=== PATIENT | female | born 1950 | race Two or more races ===

== ENCOUNTER 2024-09-15 10:38 | Inpatient (IN) | payer BC, OTHER ==
[~2024-09-15] VITALS: Ht 160 cm; Wt 106.0 kg
[2024-09-15 05:00] VITALS: BP 158/107; PULSE 65; RESP 17; TEMP 97.8; O2SAT 95
--- NOTE | 2024-09-15 11:30 | ED.PDOC ---
General HPI Comments HPI: 74 year old female presents to the emergency department with a chief complaint of LT flank pain onset today (09/15/24) about 1 hour prior to ED arrival. Patient states she began experiencing LT flank pain radiating to left mid abdomen for the past hour, as well as nausea/vomiting. Patient had kidney stones in the past, states pain is similar. Denies fevers, chills, diarrhea, constipation, dizziness, hematemesis, hematuria. No other symptoms or modifying factors present at this time. Initial Vitals BP: 176/85 HR: 64 RR: 20 O2 Sat: 95% Temp: 99.2F Past Medical history: kidney stones, HTN, trigeminal neuralgia Past Surgical history: Denies Medications: Social History: Denies smoking, ETOH, and drug use. Allergies: Penicillin, Azithromycin HPI: Poor Historian. REVIEW OF SYSTEMS: CONSTITUTIONAL: Denies acute: fever, diaphoresis, chills, HEAD: Denies acute: headache, photophobia Eyes: Denies acute: Double vision, vision loss, eye pain, eye discharge. EARS: Denies acute: tinnitus, hearing loss, ear discharge, ear pain, THROAT: Denies acute: sore throat, swelling, difficulty swallowing , pain with swallowing, change in voice. NECK: Denies acute: neck pain, neck swelling, stiff neck. HEART: Denies acute : chest pain, palpitations, LUNGS: Denies acute: SOB, wheezing, cough, hemoptysis ABDOMEN: Denies acute: diarrhea, melena , hematemesis, hematochezia SKIN: Denies acute: rash, redness, lesions, itchiness. EXTREMITIES: Denies acute: calf pain, numbness, tingling, weakness, denies pain in extremity. Denies acute: Low back pain. Neuro: Denies acute: focal neurological deficit, motor or sensory focal neurological deficit, tremors, seizure like activity, confusion, dizziness, change in mental status, loss of bowel or bladder function, cauda equina like symptoms. : Denies acute: dysuria, hematuria, increase in urinary frequency. PSYCH: Denies acute: hallucination, suicidal ideation, homicidal ideation. FEMALE: Denies acute: abnormal vaginal bleeding, foul odor, unusual discharge. PHYSICAL EXAM: General: ----moderate to severe----acute distress, awake and alert. Head: normocephalic, atraumatic. Neck: supple, trachea is midline, no swelling. Throat: Normal phonation. Eyes:, no erythema, no purulent discharge, no proptosis, no icterus. Heart: regular rate, regular rhythm, no significant murmur appreciated. Lungs: no apparent respiratory distress, Able to speak in full sentences. No wheezing, no rhonchi, no crackles. No stridors Clear to auscultation bilaterally. Abdomen: Left mid abdomen tender to palpation, non distended, soft, no guarding, no rebound, + bowel sounds. Neuro: Awake, Alert, oriented to name, self, situation, follows commands GCS=15. Speech is normal. Skin: no petechia, no purpura, no cyanosis, non-pale, not jaundice. Lower extremities: --no - Pitting edema no deformity, no focal swelling, no calf TTP. Makes eye contact. moves all four extremities. Face: no apparent facial droop. Left CVA tenderness to percussion ED COURSE: DISCLAIMER: This medical document was created using an electronic medical record system with voice recognition software and computerized dictation system. Although this document has been carefully reviewed, there might still be some phonetic and typographical errors. Occasional wrong-word or "sound-alike" substitutions may have occurred due to the inherent limitations of voice recognition software. These areas are purely typographical due to imperfections of the software programs and do not reflect any compromise in the patient's medical care. Please read the chart carefully and recognize, using context, where these substitutions have occurred. Chief Complaint: Flank Pain Time Seen by MD: 10:55 Reviewed notes: Medications, Allergies Allergies: Coded Allergies: Erythromycin (Verified Allergy, Unknown, 09/15/24) Penicillins (Verified Allergy, Unknown, 09/15/24) Information Source: Patient, Spouse Mode of Arrival: Ambulatory Severity: Moderate Timing: Hours Duration: Since onset Prehospital treatment: None Onset: Spontaneous Symptoms: None History of: Kidney stone Location: Abdomen, (L)Flank associated signs and symptoms: Nausea, Vomiting, Flank Pain, Back Pain Past Medical History PAST MEDICAL HISTORY: HTN, Kidney Stones Surgical History: Denies all surgeries 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 Was a procedure done?: No X-Ray, Labs, Meds, VS Vital Signs Date Time Temp Pulse Resp B/P (MAP) Pulse Ox O2 Delivery O2 Flow Rate FiO2 09/15/24 15:42 135/54 09/15/24 14:00 61 16 132/47 (75) 95 09/15/24 12:11 90 Nasal Cannula* 4 36 09/15/24 12:02 50 16 90 Nasal Cannula* 4 36 09/15/24 12:00 52 09/15/24 12:00 98.1 47 16 139/64 (89) 95 98.1 09/15/24 11:52 134/67 09/15/24 10:42 99.2 64 20 176/85 (115) 95 99.2 Lab Test 09/15/24 12:17 09/15/24 11:19 Range/Units POC Glucose 197 H 70-106 mg/dl White Blood Count 7.9 4.4-10.8 10^3/uL Red Blood Count 4.68 4.0-5.20 10^6/uL Hemoglobin 15.5 12.2-16.2 g/dL Hematocrit 45.1 36.0-46.0 % Mean Corpuscular Volume 96.3 80.0-100.0 fL Mean Corpuscular Hemoglobin 33.1 H 28.0-32.0 pg Mean Corpuscular Hemoglobin Concent 34.3 32.0-36.0 g/dL Red Cell Distribution Width 12.4 11.8-14.3 % Platelet Count 144 140-450 10^3/uL Mean Platelet Volume 9.6 6.9-10.8 fL Neutrophils (%) (Auto) 71.1 37.0-80.0 % Lymphocytes (%) (Auto) 21.0 10.0-50.0 % Monocytes (%) (Auto) 4.7 0.0-12.0 % Eosinophils (%) (Auto) 2.5 0.0-7.0 % Basophils (%) (Auto) 0.7 0.0-2.0 % Neutrophils # (Auto) 5.6 1.6-8.6 10 ^3/uL Lymphocytes # (Auto) 1.6 0.4-5.4 10 ^3/uL Monocytes # (Auto) 0.4 0-1.3 10 ^3/uL Eosinophils # (Auto) 0.2 0-0.8 10 ^3/uL Basophils # (Auto) 0.1 0-0.2 10 ^3/uL Nucleated Red Blood Cells 0.1 % Sodium Level 145 136-145 mmol/L Potassium Level 3.4 L 3.5-5.1 mmol/L Chloride Level 110 H 98-107 mmol/L Carbon Dioxide Level 26 20-31 mmol/L Anion Gap 9 5-15 Blood Urea Nitrogen 23 9-23 mg/dL Creatinine 0.77 0.550-1.02 mg/dL Glomerular Filtration Rate Calc 81 >90 mL/min BUN/Creatinine Ratio 29.9 H 10.0-20.0 Serum Glucose 175 H 74-106 mg/dL Lactic Acid Level 1.8 0.4-2.0 mmol/L Calcium Level 9.1 8.7-10.4 mg/dL Total Bilirubin 0.4 0.2-1.0 mg/dL Aspartate Amino Transferase (AST) 22 13-40 U/L Alanine Aminotransferase (ALT) 23 7-40 U/L Alkaline Phosphatase 83 46-116 U/L Troponin I High Sensitivity < 3 L </=34 ng/L Total Protein 6.1 5.7-8.2 g/dL Albumin 4.2 3.2-4.8 g/dL Lipase 36 12-53 U/L Current Medications Medications (Trade) Dose Ordered Sig/Jose Luis Route Start Time Stop Time Status Last Admin Sodium Chloride 1,000 ml @ 1,000 mls/hr Q1H ONCE IV 09/15/24 11:15 09/15/24 12:14 DC 09/15/24 11:47 Ondansetron HCl (Zofran) 8 mg ONCE ONCE IV 09/15/24 11:15 09/15/24 11:16 DC 09/15/24 11:46 Tamsulosin HCl (Flomax) 0.4 mg ONCE ONCE PO 09/15/24 11:15 09/15/24 11:16 DC 09/15/24 12:22 Fentanyl Citrate 100 mcg ONCE ONCE IV 09/15/24 11:15 09/15/24 11:16 DC 09/15/24 11:52 Sodium Chloride 1,000 ml @ 1,000 mls/hr Q1H ONCE IV 09/15/24 13:00 09/15/24 13:59 DC 09/15/24 14:04 Ceftriaxone Sodium 50 ml @ 100 mls/hr ONCE ONCE IV 09/15/24 13:45 09/15/24 14:14 DC 09/15/24 14:04 Fentanyl Citrate 100 mcg ONCE ONCE IV 09/15/24 14:45 09/15/24 14:46 DC 09/15/24 15:42 Sodium Chloride 1,000 ml @ 1,000 mls/hr Q1H ONCE IV 09/15/24 14:45 09/15/24 15:44 DC 09/15/24 16:02 [place] [address] Ph: [phone] DIAGNOSTIC IMAGING Diagnostic Imaging Report : [id number] Signed PATIENT: [address] ACCT: [id number] UNIT: [id number] : 1950 LOC: ER ROOM / BED: / AGE / SEX: 74 / F ADM STATUS: REG ER SERVICE 1101 ORDERING PHYSICIAN: TYRONE DELACRUZ DO PROCEDURE(s): ABPL - CT AB PEL WO CON-NO ORAL OR IV REASON: dizzy ORDER NUMBER(s): [id number], ACCESSION NUMBER(s): [id number] EXAM: CT CT AB PEL WO CON-NO ORAL OR IV HISTORY: dizzy COMPARISON: None TECHNIQUE: Helical CT images of the abdomen and pelvis were performed without IV contrast. Sagittal and coronal reformatted images were obtained. This CT exam was performed using one or more of the following dose reduction techniques: Automated exposure control, adjustment of the mA and/or kv according to patient size, or the use of iterative reconstruction techniques. Radiation Dose: Abdomen/Pelvis: CTDIvol 22.6 mGy, DLP 1197.44 mGy*cm. FINDINGS: CT abdomen: There is mild interstitial prominence in the lung bases. The heart is enlarged. Subcentimeter gallstone is identifiedin the dependent portion of the gallbladder. There is moderate left hydronephrosis and hydroureter secondary to distal ureteral 3 mm calculus (image 80, series 2). There is a nonobstructing 3 mm left renal inferior pole calculus. The liver measures 21 cm longitudinal. The noncontrast spleen, pancreas, right kidney, and bilateral adrenal glands are unremarkable. No abdominal aortic aneurysm. There is a small fatty umbilical hernia. CT pelvis: No abnormal bowel dilatation, free air, or free fluid. There are descending and sigmoid colon diverticula without evidence of acute diverticulitis. The appendix is not dilated. There is a small fatty left inguinal indirect hernia. There is moderate to severe lower lumbar degenerative disc disease and facet arthropathy. IMPRESSION: 1. Moderate left hydronephrosis and hydroureter secondary to distal ureteral 3 mm calculus. There is also nonobstructing left nephrolithiasis. 2. Cardiomegaly. 3. Mild interstitial prominence in the lung bases may be due to scarring, reactive airways disease, or mild CHF. 4. Cholelithiasis. 5. Descending and sigmoid colon diverticulosis without evidence of acute diverticulitis. 6. No evidence of bowel obstruction, acute appendicitis, or other acute process in the abdomen or pelvis. ATED BY: POOJA QUINTERO MD DICTATED DATE/TIME: 09/15/24 1135 SIGNED BY: POOJA QUINTERO MD SIGNED DATE/TIME: 09/15/24 1135 CC: Time of 1ST Reevaluation: 11:25 Reevaluation 1ST: Unchanged Time of 2ND Reevaluation: 16:04 (The case was discussed with the admitting team (HPI, physical exam, labs and diagnostic tests that were available at the time of disposition, ED course, treatment plan) on the phone. They agreed to admit the patient to their service and assume care of this patient from this point forward. --- Codey. ) Patient Education/Counseling: Diagnosis, Treatment Family Education/Counseling: Diagnosis, Treatment Departure 1 Departure Time of Disposition: 14:42 Impression: Primary Impression: Kidney stone Additional Impression: Hydronephrosis with renal and ureteral calculous obstruction Disposition: ADMITTED INPATIENT Admit to: [facility] Condition: Guarded Additional Instructions: [facility] [id number] [facility] [address] Ph: [phone] DIAGNOSTIC IMAGING Diagnostic Imaging Report : [id number] Signed PATIENT: [address] ACCT: [id number] UNIT: [id number] : 1950 LOC: ER ROOM / BED: / AGE / SEX: 74 / F ADM STATUS: REG ER SERVICE 1101 ORDERING PHYSICIAN: TYRONE DELACRUZ DO PROCEDURE(s): ABPL - CT AB PEL WO CON-NO ORAL OR IV REASON: dizzy ORDER NUMBER(s): [id number], ACCESSION NUMBER(s): [id number] EXAM: CT CT AB PEL WO CON-NO ORAL OR IV HISTORY: dizzy COMPARISON: None TECHNIQUE: Helical CT images of the abdomen and pelvis were performed without IV contrast. Sagittal and coronal reformatted images were obtained. This CT exam was performed using one or more of the following dose reduction techniques: Automated exposure control, adjustment of the mA and/or kv according to patient size, or the use of iterative reconstruction techniques. Radiation Dose: Abdomen/Pelvis: CTDIvol 22.6 mGy, DLP 1197.44 mGy*cm. FINDINGS: CT abdomen: There is mild interstitial prominence in the lung bases. The heart is enlarged. Subcentimeter gallstone is identifiedin the dependent portion of the gallbladder. There is moderate left hydronephrosis and hydroureter secondary to distal ureteral 3 mm calculus (image 80, series 2). There is a nonobstructing 3 mm left renal inferior pole calculus. The liver measures 21 cm longitudinal. The noncontrast spleen, pancreas, right kidney, and bilateral adrenal glands are unremarkable. No abdominal aortic aneurysm. There is a small fatty umbilical hernia. CT pelvis: No abnormal bowel dilatation, free air, or free fluid. There are descending and sigmoid colon diverticula without evidence of acute diverticulitis. The appendix is not dilated. There is a small fatty left inguinal indirect hernia. There is moderate to severe lower lumbar degenerative disc disease and facet arthropathy. IMPRESSION: 1. Moderate left hydronephrosis and hydroureter secondary to distal ureteral 3 mm calculus. There is also nonobstructing left nephrolithiasis. 2. Cardiomegaly. 3. Mild interstitial prominence in the lung bases may be due to scarring, reactive airways disease, or mild CHF. 4. Cholelithiasis. 5. Descending and sigmoid colon diverticulosis without evidence of acute diverticulitis. 6. No evidence of bowel obstruction, acute appendicitis, or other acute process in the abdomen or pelvis. ATED BY: POOJA QUINTERO MD DICTATED DATE/TIME: 09/15/24 1135 SIGNED BY: POOJA QUINTERO MD SIGNED DATE/TIME: 09/15/24 1135 CC: Discharged With: Self I personally scribed for TYRONE DELACRUZ DO ([email or web address]) on 09/15/24 at 11:30. Electronically submitted by Hiral Bhatt ([email or web address]). I personally scribed for TYRONE DELACRUZ DO ([email or web address]) on 09/15/24 at 12:33. Electronically submitted by Hiral Bhatt ([email or web address]). I personally scribed for TYRONE DELACRUZ DO ([email or web address]) on 09/15/24 at 14:30. Electronically submitted by Hiral Bhatt ([email or web address]). TYRONE DELACRUZ DO Sep 15, 2024 11:30
[2024-09-15 11:33] LABS: Hematocrit 45.1 % (36.0-46.0); Hemoglobin 15.5 g/dL (12.2-16.2); Mean Corpuscular Hemoglobin 33.1 pg (28.0-32.0); Mean Corpuscular Volume 96.3 fL (80.0-100.0); Nucleated Red Blood Cells % 0.1 %
--- NOTE | 2024-09-15 11:37 | DVH ---
EXAM: CT CT AB PEL WO CON-NO ORAL OR IV HISTORY: dizzy COMPARISON: None TECHNIQUE: Helical CT images of the abdomen and pelvis were performed without IV contrast. Sagittal a nd coronal reformatted images were obtained. This CT exam was performed using one or more of the foll owing dose reduction techniques: Automated exposure control, adjustment of the mA and/or kv according to patient size, or the use of iterative reconstruction techniques. Radiation Dose: Abdomen/Pelvis: CTDIvol 22.6 mGy, DLP 1197.44 mGy*cm. FINDINGS: CT abdomen: There is mild interstitial prominence in the lung bases. The heart is enlarged. Subcenti meter gallstone is identifiedin the dependent portion of the gallbladder. There is moderate left hydr onephrosis and hydroureter secondary to distal ureteral 3 mm calculus (image 80, series 2). There is a nonobstructing 3 mm left renal inferior pole calculus. The liver measures 21 cm longitudinal. The n oncontrast spleen, pancreas, right kidney, and bilateral adrenal glands are unremarkable. No abdomina l aortic aneurysm. There is a small fatty umbilical hernia. CT pelvis: No abnormal bowel dilatation, free air, or free fluid. There are descending and sigmoid co alli diverticula without evidence of acute diverticulitis. The appendix is not dilated. There is a sma ll fatty left inguinal indirect hernia. There is moderate to severe lower lumbar degenerative disc di sease and facet arthropathy. IMPRESSION: 1. Moderate left hydronephrosis and hydroureter secondary to distal ureteral 3 mm calculus. There is also nonobstructing left nephrolithiasis. 2. Cardiomegaly. 3. Mild interstitial prominence in the lung bases may be due to scarring, reactive airways disease, o r mild CHF. 4. Cholelithiasis. 5. Descending and sigmoid colon diverticulosis without evidence of acute diverticulitis. 6. No evidence of bowel obstruction, acute appendicitis, or other acute process in the abdomen or pel vis.
[2024-09-15] MEDS: ONDANSETRON HCL 4 MG/2 ML VIAL IV ONE (11:46)
[2024-09-15] MEDS: SODIUM CHLORIDE 0.9% 1,000 ML IV ONE ×3 (11:47→16:02)
[2024-09-15 11:50] LABS: Alanine Aminotransferase 23 U/L (7-40); Albumin 4.2 g/dL (3.2-4.8); Alkaline Phosphatase 83 U/L (46-116); Anion Gap 9 (5-15); BUN/Creatinine Ratio 29.9 (10.0-20.0); Calcium 9.1 mg/dL (8.7-10.4); Carbon Dioxide 26 mmol/L (20-31); Lipase 36 U/L (12-53); Sodium 145 mmol/L (136-145); Total Protein 6.1 g/dL (5.7-8.2)
[2024-09-15 11:51] LABS: Bilirubin, Total 0.4 mg/dL (0.2-1.0)
[2024-09-15 11:52] LABS: Blood Urea Nitrogen 23 mg/dL (9-23); Chloride 110 mmol/L (98-107); Glucose 175 mg/dL (74-106); Potassium 3.4 mmol/L (3.5-5.1)
[2024-09-15] MEDS: fentaNYL CITRATE 100 MCG/2 ML VL IV ONE ×2 (11:52→15:42)
[2024-09-15 12:02] VITALS: PULSE 50; RESP 16; O2SAT 90
[2024-09-15] MEDS: TAMSULOSIN HYDROCHLORIDE 0.4 MG CAP PO ONE (12:22)
[2024-09-15] MEDS: cefTRIAXone 1GM/50ML D5W 50 ML IV ONE (14:04)
[2024-09-15] MEDS ORDERED: NITROGLYCERIN 0.4 MG SL TAB SL PRN (16:15)
[2024-09-15] MEDS ORDERED: HYDROcodone-ACET 5/325MG TAB PO PRN (16:15)
[2024-09-15] MEDS ORDERED: TEMAZEPAM 15 MG CAP PO PRN (16:15)
[2024-09-15] MEDS ORDERED: MORPHINE SULFATE INJ 2 MG/ml SYRG IV PRN (16:15)
[2024-09-15 16:19] LABS: Urine Protein, UAD TRACE (Negative)
[2024-09-15] MEDS ORDERED: HYDROmorphone HCL 2 MG/ML VL/or syr IV PRN (16:30)
--- NOTE | 2024-09-15 16:53 | DVHINCON2 ---
Date of service: Sep 15, 2024 Referring Physician Hospitalist Reason for Consultation Moderate left hydronephrosis due to 3 mm left distal ureteral stone History of Present Illness 74 year old female admitted to [facility] with a chief complaint of LT flank pain onset today (09/15/24) about 1 hour prior to ED arrival. Patient states she began experiencing LT flank pain radiating to left mid abdomen for the past hour, as well as nausea/vomiting. Patient had kidney stones in the past, states pain is similar. Denies fevers, chills, diarrhea, constipation, dizziness, hematemesis, hematuria. No other symptoms or modifying factors present at this time. Initial Vitals BP: 176/85 HR: 64 RR: 20 O2 Sat: 95% Temp: 99.2F CT Scan reviewed. Moderate left hydonephrosis due to 3 mm distal ureteral stone. Past Medical History HTN Kidney stone Past Surgical History NA Allergies: Coded Allergies: Erythromycin (Verified Allergy, Unknown, 09/15/24) Penicillins (Verified Allergy, Unknown, 09/15/24) Current Medications Current Medications Medications (Trade) Dose Ordered Sig/Jose Luis Route PRN Reason Start Time Stop Time Status Last Admin Sodium Chloride 1,000 ml @ 60 mls/hr [id number] IV 09/15/24 16:15 Acetaminophen (Tylenol Tablet) 325 mg Q4HP PRN PO MILD PAIN (1-3 PAIN SCALE) 09/15/24 16:15 Acetaminophen/ Hydrocodone Bitart ([place] 5/325MG Tab) 1 tab Q4HP PRN PO MODERATE PAIN (4-6 PAIN SCALE) 09/15/24 16:15 Temazepam (Restoril) 15 mg QHSP PRN PO FOR INSOMNIA 09/15/24 16:15 Nitroglycerin (Ntrostat Sublingual) 0.4 mg Q5MINP PRN SL FOR CHEST PAIN 09/15/24 16:15 Morphine Sulfate 2 mg Q30M PRN IV FOR CHEST PAIN 09/15/24 16:15 Ketorolac Tromethamine (Toradol Injection) 15 mg Q6HR IV 09/15/24 18:00 09/16/24 22:00 UNV Hydromorphone HCl (Dilaudid Injection) 1 mg Q2HPRN PRN IV breakthrough pain 09/15/24 16:30 Review of Systems as per HPI Vital Signs Vital Signs Date Time Temp Pulse Resp B/P (MAP) Pulse Ox O2 Delivery O2 Flow Rate FiO2 09/15/24 16:00 98.3 53 16 136/51 (79) 95 98.3 09/15/24 12:11 Nasal Cannula* 4 36 Physical Exam AVSS Labs wnl Labs/Diagnostic Data Labs Test 09/15/24 16:00 09/15/24 12:17 09/15/24 11:19 Range/Units Urine Color Light-orange Yellow Urine Clarity Turbid H Clear Urine pH 5.5 5.0-9.0 Urine Specific [place] 1.020 1.001-1.035 Urine Protein Trace H Negative Urine Ketones Trace Negative Urine Blood 3+ H Negative /uL Urine Nitrite Negative Negative Urine Bilirubin Negative Negative Urine Urobilinogen Normal Negative mg/dL Urine Leukocyte Esterase Negative Negative /uL Urine RBC 621 0 - 4 /hpf Urine Microscopic WBC 6 H 0-5 /HPF Urine Squamous Epithelial Cells Few <5 /hpf Urine Bacteria None seen None Seen /hpf Urine Mucus Few None Seen Urine Glucose 2+ H Normal mg/dL POC Glucose 197 H 70-106 mg/dl White Blood Count 7.9 4.4-10.8 10^3/uL Red Blood Count 4.68 4.0-5.20 10^6/uL Hemoglobin 15.5 12.2-16.2 g/dL Hematocrit 45.1 36.0-46.0 % Mean Corpuscular Volume 96.3 80.0-100.0 fL Mean Corpuscular Hemoglobin 33.1 H 28.0-32.0 pg Mean Corpuscular Hemoglobin Concent 34.3 32.0-36.0 g/dL Red Cell Distribution Width 12.4 11.8-14.3 % Platelet Count 144 140-450 10^3/uL Mean Platelet Volume 9.6 6.9-10.8 fL Neutrophils (%) (Auto) 71.1 37.0-80.0 % Lymphocytes (%) (Auto) 21.0 10.0-50.0 % Monocytes (%) (Auto) 4.7 0.0-12.0 % Eosinophils (%) (Auto) 2.5 0.0-7.0 % Basophils (%) (Auto) 0.7 0.0-2.0 % Neutrophils # (Auto) 5.6 1.6-8.6 10 ^3/uL Lymphocytes # (Auto) 1.6 0.4-5.4 10 ^3/uL Monocytes # (Auto) 0.4 0-1.3 10 ^3/uL Eosinophils # (Auto) 0.2 0-0.8 10 ^3/uL Basophils # (Auto) 0.1 0-0.2 10 ^3/uL Nucleated Red Blood Cells 0.1 % Sodium Level 145 136-145 mmol/L Potassium Level 3.4 L 3.5-5.1 mmol/L Chloride Level 110 H 98-107 mmol/L Carbon Dioxide Level 26 20-31 mmol/L Anion Gap 9 5-15 Blood Urea Nitrogen 23 9-23 mg/dL Creatinine 0.77 0.550-1.02 mg/dL Glomerular Filtration Rate Calc 81 >90 mL/min BUN/Creatinine Ratio 29.9 H 10.0-20.0 Serum Glucose 175 H 74-106 mg/dL Lactic Acid Level 1.8 0.4-2.0 mmol/L Calcium Level 9.1 8.7-10.4 mg/dL Total Bilirubin 0.4 0.2-1.0 mg/dL Aspartate Amino Transferase (AST) 22 13-40 U/L Alanine Aminotransferase (ALT) 23 7-40 U/L Alkaline Phosphatase 83 46-116 U/L Troponin I High Sensitivity < 3 L </=34 ng/L Total Protein 6.1 5.7-8.2 g/dL Albumin 4.2 3.2-4.8 g/dL Lipase 36 12-53 U/L PATIENT: [address] ACCT: [id number] UNIT: [id number] : 1950 LOC: ER ROOM / BED: / AGE / SEX: 74 / F ADM STATUS: REG ER SERVICE 1101 ORDERING PHYSICIAN: TYRONE DELACRUZ DO PROCEDURE(s): ABPL - CT AB PEL WO CON-NO ORAL OR IV REASON: dizzy ORDER NUMBER(s): [id number], ACCESSION NUMBER(s): [id number] EXAM: CT CT AB PEL WO CON-NO ORAL OR IV HISTORY: dizzy COMPARISON: None TECHNIQUE: Helical CT images of the abdomen and pelvis were performed without IV contrast. Sagittal and coronal reformatted images were obtained. This CT exam was performed using one or more of the following dose reduction techniques: Automated exposure control, adjustment of the mA and/or kv according to patient size, or the use of iterative reconstruction techniques. Radiation Dose: Abdomen/Pelvis: CTDIvol 22.6 mGy, DLP 1197.44 mGy*cm. FINDINGS: CT abdomen: There is mild interstitial prominence in the lung bases. The heart is enlarged. Subcentimeter gallstone is identifiedin the dependent portion of the gallbladder. There is moderate left hydronephrosis and hydroureter secondary to distal ureteral 3 mm calculus (image 80, series 2). There is a nonobstructing 3 mm left renal inferior pole calculus. The liver measures 21 cm longitudinal. The noncontrast spleen, pancreas, right kidney, and bilateral adrenal glands are unremarkable. No abdominal aortic aneurysm. There is a small fatty umbilical hernia. CT pelvis: No abnormal bowel dilatation, free air, or free fluid. There are descending and sigmoid colon diverticula without evidence of acute diverticulitis. The appendix is not dilated. There is a small fatty left inguinal indirect hernia. There is moderate to severe lower lumbar degenerative disc disease and facet arthropathy. IMPRESSION: 1. Moderate left hydronephrosis and hydroureter secondary to distal ureteral 3 mm calculus. There is also nonobstructing left nephrolithiasis. 2. Cardiomegaly. 3. Mild interstitial prominence in the lung bases may be due to scarring, r eactive airways disease, or mild CHF. 4. Cholelithiasis. 5. Descending and sigmoid colon diverticulosis without evidence of acute diverticulitis. 6. No evidence of bowel obstruction, acute appendicitis, or other acute process in the abdomen or pelvis. ATED BY: POOJA QUINTERO MD DICTATED DATE/TIME: 09/15/24 113 SIGNED BY: POOJA QUINTERO MD SIGNED DATE/TIME: 09/15/24 1135 CC: Assessment 3 mm left distal ureteral stone Left hydronephrosis- moderate Left flank pain Plan/Recommendation Expulsive measures CT Urogram When stable, plan for outpt lithotrispsy. If unable to pass the stone and needs inpatient ESWL, will arrange for Wednesday09/19/24 Plan discussed with: Patient, Other CRISTHIAN CANCHOLA MD Sep 15, 2024 16:53
[2024-09-15] MEDS: SODIUM CHLORIDE 0.9% 1,000 ML IV SCH (17:20)
[2024-09-15] MEDS: KETOROLAC TROMETH 30 MG/ML 1ML VIAL IV SCH (17:47)
[2024-09-15 22:30] VITALS: PULSE 59; RESP 17; O2SAT 95
[2024-09-16] VITALS (9 sets, daily range): BP systolic 98–115; BP diastolic 49–68; PULSE 53–87; RESP 15–18; TEMP 96.9–98.2; O2SAT 93–97
[2024-09-16 07:30] LABS: Hematocrit 41.1 % (36.0-46.0); Hemoglobin 14.0 g/dL (12.2-16.2); Mean Corpuscular Hemoglobin 33.1 pg (28.0-32.0); Mean Corpuscular Volume 97.3 fL (80.0-100.0); Nucleated Red Blood Cells % 0.2 %
[2024-09-16 07:48] LABS: Alanine Aminotransferase 18 U/L (7-40); Albumin 3.6 g/dL (3.2-4.8); Alkaline Phosphatase 59 U/L (46-116); Anion Gap 11 (5-15); BUN/Creatinine Ratio 26.3 (10.0-20.0); Carbon Dioxide 24 mmol/L (20-31)
[2024-09-16 07:49] LABS: Bilirubin, Total 0.6 mg/dL (0.2-1.0)
[2024-09-16 07:52] LABS: Blood Urea Nitrogen 26 mg/dL (9-23); Calcium 8.5 mg/dL (8.7-10.4); Chloride 112 mmol/L (98-107); Glucose 179 mg/dL (74-106); Potassium 3.3 mmol/L (3.5-5.1); Sodium 147 mmol/L (136-145); Total Protein 5.1 g/dL (5.7-8.2)
[2024-09-16] MEDS: cefTRIAXone 1GM/50ML D5W 50 ML IV ONE (09:29)
--- NOTE | 2024-09-16 10:11 | DVHHP2 ---
Admitting Diagnosis: Nephrolithiasis History of Present Illness HPI Patient is a 74-year-old female who presents with complaints of severe flank pain for the past day. Patient states she has a history of nephrolithiasis. Imaging was notable for 3 mm distal ureteral calculus with associated moderate left hydronephrosis. Cardiomegaly was also noted. Diverticulosis was also noted. CBC did not reveal any leukocytosis. BMP was notable for some electrol yte abnormalities without any renal dysfunction noted. Patient was given ceftriaxone. Patient was admitted for further evaluation for nephrolithiasis. Past Medical History Others Trigeminal Nerve Pain Hx of nephrolithiasis Patient Family History: Patient reports no known family medical history. Review of Systems Gastrointestinal: Nausea Musculoskeletal: Back pain H&P Exam Vital Signs Vital Signs Date Time Temp Pulse Resp B/P (MAP) Pulse Ox O2 Delivery O2 Flow Rate FiO2 09/16/24 08:59 96.9 87 17 106/53 (70) 97 96.9 09/16/24 08:10 Room Air* 0 21 General Appeara: Obese Pulmonary/Respiratory: Normal inspection, Normal breath sounds Back Exam: Left CVA tenderness SEPSIS Sepsis Screen Date sepsis recognized/suspect: Sep 15, 2024 Time Sepsis recognized/suspect: 1300 Recent Procedure: No On Antibiotic Therapy: No Respiratory Rate >20: No Heart Rate >90: No Temp<36 C (96.8 F) or >38.3 C: No SBP <90 or MAP <65 mmHG: No New Acute Mental Status Change: No Is the patient on CPAP, BIPAP,: No Vital Signs Date Time Temp Pulse Resp B/P (MAP) Pulse Ox O2 Delivery O2 Flow Rate FiO2 09/16/24 08:59 96.9 87 17 106/53 (70) 97 96.9 09/16/24 08:10 87 17 97 Room Air* 0 21 09/16/24 03:33 17 Room Air* 0 21 09/16/24 03:33 97.8 65 17 106/66 (79) 95 97.8 Laboratory Tests Test 09/16/24 05:44 White Blood Count 10.0 10^3/uL (4.4-10.8) # Medications Medications Dose Ordered Sig/Jose Luis Route Start Time Stop Time Status Last Admin Dose Admin Ceftriaxone Sodium 50 ml @ 100 mls/hr ONCE ONCE IV 09/16/24 09:00 09/16/24 09:29 DC 09/16/24 09:29 100 MLS/HR Labs/Xrays Labs Test 09/16/24 05:44 09/15/24 16:00 09/15/24 12:17 09/15/24 11:19 Range/Units White Blood Count 10.0 # 4.4-10.8 10^3/uL Red Blood Count 4.23 4.0-5.20 10^6/uL Hemoglobin 14.0 12.2-16.2 g/dL Hematocrit 41.1 36.0-46.0 % Mean Corpuscular Volume 97.3 80.0-100.0 fL Mean Corpuscular Hemoglobin 33.1 H 28.0-32.0 pg Mean Corpuscular Hemoglobin Concent 34.0 32.0-36.0 g/dL Red Cell Distribution Width 12.9 11.8-14.3 % Platelet Count 135 L 140-450 10^3/uL Mean Platelet Volume 10.1 6.9-10.8 fL Neutrophils (%) (Auto) 74.7 37.0-80.0 % Lymphocytes (%) (Auto) 18.1 10.0-50.0 % Monocytes (%) (Auto) 5.8 0.0-12.0 % Eosinophils (%) (Auto) 1.0 0.0-7.0 % Basophils (%) (Auto) 0.4 0.0-2.0 % Neutrophils # (Auto) 7.5 1.6-8.6 10 ^3/uL Lymphocytes # (Auto) 1.8 0.4-5.4 10 ^3/uL Monocytes # (Auto) 0.6 0-1.3 10 ^3/uL Eosinophils # (Auto) 0.1 0-0.8 10 ^3/uL Basophils # (Auto) 0 0-0.2 10 ^3/uL Nucleated Red Blood Cells 0.2 % Sodium Level 147 H 136-145 mmol/L Potassium Level 3.3 L 3.5-5.1 mmol/L Chloride Level 112 H 98-107 mmol/L Carbon Dioxide Level 24 20-31 mmol/L Anion Gap 11 5-15 Blood Urea Nitrogen 26 H 9-23 mg/dL Creatinine 0.99 0.550-1.02 mg/dL Glomerular Filtration Rate Calc 60 >90 mL/min BUN/Creatinine Ratio 26.3 H 10.0-20.0 Serum Glucose 179 H 74-106 mg/dL Calcium Level 8.5 L 8.7-10.4 mg/dL Total Bilirubin 0.6 0.2-1.0 mg/dL Aspartate Amino Transferase (AST) 24 13-40 U/L Alanine Aminotransferase (ALT) 18 7-40 U/L Alkaline Phosphatase 59 46-116 U/L Total Protein 5.1 L 5.7-8.2 g/dL Albumin 3.6 3.2-4.8 g/dL Urine Color Light-orange Yellow Urine Clarity Turbid H Clear Urine pH 5.5 5.0-9.0 Urine Specific [place] 1.020 1.001-1.035 Urine Protein Trace H Negative Urine Ketones Trace Negative Urine Blood 3+ H Negative /uL Urine Nitrite Negative Negative Urine Bilirubin Negative Negative Urine Urobilinogen Normal Negative mg/dL Urine Leukocyte Esterase Negative Negative /uL Urine RBC 621 0 - 4 /hpf Urine Microscopic WBC 6 H 0-5 /HPF Urine Squamous Epithelial Cells Few <5 /hpf Urine Bacteria None seen None Seen /hpf Urine Mucus Few None Seen Urine Glucose 2+ H Normal mg/dL POC Glucose 197 H 70-106 mg/dl Lactic Acid Level 1.8 0.4-2.0 mmol/L Troponin I High Sensitivity < 3 L </=34 ng/L Lipase 36 12-53 U/L Assessment/Plan Primary Diagnosis 1. Nephrolithiasis 2. Morbid Obesity 3. left Sided Hydronephrosis Plan -Ceftriaxone 1gm IV daily given WBC on UA -Urology consulted. Recommend conservative expulsion measures -Continue flomax -Continue IV hydration -Pain medications per MAR -Daily CBC and BMP -Full Code Plan discussed with: Patient IDANIA RODRIGUEZ DO Sep 16, 2024 10:11
[2024-09-16] MEDS: MANNITOL FTV 25% 12.5 GM/50 ML 50 ML IV ONE (11:09)
--- NOTE | 2024-09-16 11:42 | DVHPN2 ---
Progress Note - Dictate Date Seen: Sep 16, 2024 Has the PT tested + for MRSA If YES, has PT been informed?: No Medical Necessity Reason Pt with a Central, PICC or Fol: No Medical Necessity Reason Left hydronephrosis with left ureteral and renal calculi measuring 3 mm each Subjective Patient reports no flank pain at this time vital signs Vital Sign Date Time Temp Pulse Resp B/P (MAP) Pulse Ox O2 Delivery O2 Flow Rate FiO2 09/16/24 08:59 96.9 87 17 106/53 (70) 97 96.9 09/16/24 08:10 Room Air* 0 21 Total Intake and Output 09/15/24 09/15/24 09/16/24 15:00 23:00 07:00 Intake Total 1000 ml 2050 ml 120 ml Output Total 1000 ml 200 ml Balance 1000 ml 1050 ml -80 ml medications Current Medications Medications Dose Ordered Sig/Jose Luis Route Start Time Stop Time Status Last Admin Dose Admin Acetaminophen 325 mg Q4HP PRN PO 09/15/24 16:15 Acetaminophen/ Hydrocodone Bitart 1 tab Q4HP PRN PO 09/15/24 16:15 Temazepam 15 mg QHSP PRN PO 09/15/24 16:15 Nitroglycerin 0.4 mg Q5MINP PRN SL 09/15/24 16:15 Morphine Sulfate 2 mg Q30M PRN IV 09/15/24 16:15 Ketorolac Tromethamine 15 mg Q6HR IV 09/15/24 18:00 09/16/24 22:00 09/16/24 00:20 15 MG Hydromorphone HCl 1 mg Q2HPRN PRN IV 09/15/24 16:30 Tamsulosin HCl 0.4 mg QPM PO 09/16/24 18:00 Sodium Chloride 1,000 ml @ 100 mls/hr Q10H IV 09/16/24 10:30 laboratory and microbiology Laboratory Tests 09/16/24 05:44 Test 09/16/24 05:44 Range/Units Serum Glucose 179 H 74-106 mg/dL Problem List 3 mm left distal ureteral calculus with moderate hydronephrosis and another 3 mm left renal calculus Assessment/Plan Patient is stable for discharge from urological standpoint. We will follow up on outpatient basis. Plan discussed with: Patient CRISTHIAN CANCHOLA MD Sep 16, 2024 11:42
[2024-09-16] MEDS: SOD CHL 0.45% 1,000 ML IV SCH (12:57)
[2024-09-16] MEDS: TAMSULOSIN HYDROCHLORIDE 0.4 MG CAP PO SCH (18:45)
[2024-09-16] MEDS: ACETAMINOPHEN 325 MG TAB PO PRN (23:59)
[2024-09-17] VITALS (7 sets, daily range): BP systolic 125–158; BP diastolic 76–87; PULSE 69–72; RESP 16–19; TEMP 97.2–98.1; O2SAT 92–96
[2024-09-17 11:45] LABS: Hematocrit 40.2 % (36.0-46.0); Hemoglobin 13.7 g/dL (12.2-16.2); Mean Corpuscular Hemoglobin 33.4 pg (28.0-32.0); Mean Corpuscular Volume 97.9 fL (80.0-100.0); Nucleated Red Blood Cells % 0.1 %; Potassium 3.6 mmol/L (3.5-5.1); Sodium 143 mmol/L (136-145)
[2024-09-17 11:46] LABS: Anion Gap 7 (5-15); Calcium 9.2 mg/dL (8.7-10.4); Carbon Dioxide 25 mmol/L (20-31)
[2024-09-17 11:51] LABS: BUN/Creatinine Ratio 24.2 (10.0-20.0); Blood Urea Nitrogen 16 mg/dL (9-23)
[2024-09-17 11:54] LABS: Chloride 111 mmol/L (98-107); Glucose 148 mg/dL (74-106)
--- NOTE | 2024-09-17 14:19 | DVHDS2 ---
Discharge Summary Date of Admission Sep 15, 2024 at 16:01 Date of Discharge: Sep 17, 2024 Labs/Diagnostic Data: Laboratory Results Test 09/17/24 11:00 09/16/24 05:44 09/15/24 16:00 09/15/24 12:17 White Blood Count 6.8 10^3/uL (4.4-10.8) Red Blood Count 4.10 10^6/uL (4.0-5.20) Hemoglobin 13.7 g/dL (12.2-16.2) Hematocrit 40.2 % (36.0-46.0) Mean Corpuscular Volume 97.9 fL (80.0-100.0) Mean Corpuscular Hemoglobin 33.4 pg (28.0-32.0) Mean Corpuscular Hemoglobin Concent 34.1 g/dL (32.0-36.0) Red Cell Distribution Width 12.8 % (11.8-14.3) Platelet Count 149 10^3/uL (140-450) Mean Platelet Volume 9.7 fL (6.9-10.8) Neutrophils (%) (Auto) 61.7 % (37.0-80.0) Lymphocytes (%) (Auto) 28.3 % (10.0-50.0) Monocytes (%) (Auto) 6.1 % (0.0-12.0) Eosinophils (%) (Auto) 3.2 % (0.0-7.0) Basophils (%) (Auto) 0.7 % (0.0-2.0) Neutrophils # (Auto) 4.2 10 ^3/uL (1.6-8.6) Lymphocytes # (Auto) 1.9 10 ^3/uL (0.4-5.4) Monocytes # (Auto) 0.4 10 ^3/uL (0-1.3) Eosinophils # (Auto) 0.2 10 ^3/uL (0-0.8) Basophils # (Auto) 0 10 ^3/uL (0-0.2) Nucleated Red Blood Cells 0.1 % Sodium Level 143 mmol/L (136-145) Potassium Level 3.6 mmol/L (3.5-5.1) Chloride Level 111 mmol/L (98-107) Carbon Dioxide Level 25 mmol/L (20-31) Anion Gap 7 (5-15) Blood Urea Nitrogen 16 mg/dL (9-23) Creatinine 0.66 mg/dL (0.550-1.02) Glomerular Filtration Rate Calc 93 mL/min (>90) BUN/Creatinine Ratio 24.2 (10.0-20.0) Serum Glucose 148 mg/dL (74-106) Calcium Level 9.2 mg/dL (8.7-10.4) Total Bilirubin 0.6 mg/dL (0.2-1.0) Aspartate Amino Transferase (AST) 24 U/L (13-40) Alanine Aminotransferase (ALT) 18 U/L (7-40) Alkaline Phosphatase 59 U/L (46-116) Total Protein 5.1 g/dL (5.7-8.2) Albumin 3.6 g/dL (3.2-4.8) Urine Color Light-orange (Yellow) Urine Clarity Turbid (Clear) Urine pH 5.5 (5.0-9.0) Urine Specific [place] 1.020 (1.001-1.035) Urine Protein Trace (Negative) Urine Ketones Trace (Negative) Urine Blood 3+ /uL (Negative) Urine Nitrite Negative (Negative) Urine Bilirubin Negative (Negative) Urine Urobilinogen Normal mg/dL (Negative) Urine Leukocyte Esterase Negative /uL (Negative) Urine RBC 621 /hpf (0 - 4) Urine Microscopic WBC 6 /HPF (0-5) Urine Squamous Epithelial Cells Few /hpf (<5) Urine Bacteria None seen /hpf (None Seen) Urine Mucus Few (None Seen) Urine Glucose 2+ mg/dL (Normal) POC Glucose 197 mg/dl (70-106) Test 09/15/24 11:19 Lactic Acid Level 1.8 mmol/L (0.4-2.0) Troponin I High Sensitivity < 3 ng/L (</=34) Lipase 36 U/L (12-53) Other Laboratory Tests 09/17/24 11:00 Brief Hx & Hospital Course: Patient is a 74-year-old female who presents with complaints of severe flank pain for the past day. Patient states she has a history of nephrolithiasis. Imaging was notable for 3 mm distal ureteral calculus with associated moderate left hydronephrosis. Cardiomegaly was also noted. Diverticulosis was also noted. CBC did not reveal any leukocytosis. BMP was notable for some electrolyte abnormalities without any renal dysfunction noted. Patient was given ceftriaxone. Patient was admitted for further evaluation for nephrolithiasis. Patient did not have any leukocytosis during her admission. She was seen by urology who recommended medical management for expulsion of nephrolithiasis. Patient was given Flomax. Her pain subsequently resolved without any CVA tenderness. No antibiotics were prescribed at discharge as patient was afebrile, no leukocytosis he had urine only showed microscopic WBC without any leukocytes or nitrites. Patient discharged in stable condition. She is follow- up with her PCP. She is to follow-up with urology for hydronephrosis. Condition at Discharge: Good Final Diagnosis/Problems List NEPHROLITHIASIS. Secondary Diagnosis: Left Hydronephrosis No Sepsis Morbid Obesity Discharge Disposition: Home Discharge Instruct/Medications Diet: Consistent carbohydrate Activity: No Restrictions, As Tolerated Follow Up/Referral: Follow up with PCP. Medications: No new medications. No Active Prescriptions or Reported Meds Discharge Statement: "Patient was advised to return to the ER or call 911 if any headaches, dizziness, shortness of breath, chest pain, abdominal pain, bleeding, fevers, or worsening of medical condition. Patient was counseled about treatment plan, medications, possible side effects, patientverbalized understanding. All questions were answered to the best of my ability. This discharge took greater then 30 minutes in planning, reviewing documentation, counseling the patient, and discussing with other team members." ASSESSMENT ASSESSMENT Assessment NEPHROLITHIASIS. IDANIA RODRIGUEZ DO Sep 17, 2024 14:19
== END 2024-09-17 14:03 | disposition home or self-care (01) | DRG 694 ==
LOC: ER 10:38 → OVERFLOW 16:01 → TELE-CENTR 16:21
PROVIDERS: ADMIT Student in an Organized Health Care Education/Training Program; ATTEND Student in an Organized Health Care Education/Training Program
DX: N13.2 Hydronephrosis with renal and ureteral calculous obstruction (principal); Z68.41 Body mass index [BMI] 40.0-44.9, adult; E66.01 Morbid (severe) obesity due to excess calories; K57.30 Diverticulosis of large intestine without perforation or abscess without bleeding; Z87.442 Personal history of urinary calculi; Z88.0 Allergy status to penicillin; Z88.1 Allergy status to other antibiotic agents; Z79.899 Other long term (current) drug therapy
CPT/HCPCS: 36415; 74176; 80048; 80053; 81001; 82962; 83605; 83690; 84484; 85025; 96361; 96374; G0378; J1885; J2405